=== PATIENT | male | born 2000 | race Caucasian/White ===

== ENCOUNTER 2024-03-27 00:13 | Emergency (ER) | payer SELFPAY ==
[2024-03-27 00:16] VITALS: BP 174/102
--- NOTE | 2024-03-27 00:46 | ED.GENMED ---
History of Present Illness
General
Chief Complaint: Abdominal Pain
Time Seen by Provider: 03/27/24 00:41
History of Present Illness
History of Present Illness:
TIME OF INITIAL ENCOUNTER: 12:48 AM
HPI:
Over the last 3 days or so the patient's been having vomiting and diarrhea. He did not take anything to stop the diarrhea but now feels more constipated. He has diffuse abdominal pain but pain is primarily localized to the infraumbilical region.
Mom was concerned about the possibly of appendicitis as she had an atypical presentation years ago. Has had no fevers.
EXAM:
GENERAL: Well appearing but in mild distress, he is hypertensive
HEENT: Moist oral mucosa
CARDIOVASCULAR: No murmurs, normal heart rate, regular rhythm, No chest wall tenderness
PULMONARY: No respiratory distress, breath sounds are clear and equal
ABDOMEN: Soft with no peritoneal signs, mild diffuse abdominal tenderness
NEUROLOGIC: Excellent strength all extremities, no coordination deficits
PSYCHIATRIC: Appropriate mental status, normal insight and judgement
EXTREMITIES: Nontender, no edema, moves all extremities equally
SKIN: No rash, no lesions
NUMBER AND COMPLEXITY OF PROBLEMS ADDRESSED AT THE ENCOUNTER
� Chronic conditions affecting care: No significant ongoing medical issues
� Acute Exacerbation and/or Progression of Chronic Illness: This is an acute problem
� Differential Diagnosis includes: Viral syndrome, foodborne illness, appendicitis less likely, mesenteric adenitis, epiploic appendagitis
AMOUNT AND/OR COMPLEXITY OF DATA TO BE REVIEWED AND ANALYZED
� I performed an independent evaluation of and my interpretation is:
EKG:
CT: CT imaging personally reviewed and I agree with radiologist interpretation that there is no acute abnormality
X-rays:
Laboratory Studies: White count 10.3, hemoglobin normal, chemistries unremarkable including LFTs and lipase
Other:
� Review of other/old records: I reviewed records, the patient went to the OR for right shoulder surgery 1 year ago
� Clinical information was obtained by an independent historian: I spoke to mother at bedside
� Prescriptions/Medications Considered but not given:
� Further testing considered but not performed:
RISK OF COMPLICATIONS AND/OR MORBIDITY OR MORTALITY OF PATIENT MANAGEMENT
� Social determinants of health affecting care: Lives at home
� Discussion with other providers:
� Escalation of care including admission/observation vs risk of discharge considered: The patient has had poor p.o. intake associated with nausea vomiting and resolved diarrhea. The patient does have diffuse abdominal pain more
so on the infraumbilical region�will obtain for further evaluation.
ANY OTHER UPDATES:
2 AM: On reassessment, the patient says that he feels 'worse'. However his ED workup is unremarkable and he appears fairly comfortable. IV fluids continue to infuse but he did only have 300 mL so far�will give additional fluids. Will also add
Toradol and Zofran. On reassessment he also tells me that he felt fine when he urinated but then after he got back in the stretcher after he urinated the pain worsened.
Past History
Past History
ED Past Medical History: Other (Meningitis)
ED Past Surgical History: None
Social History
Tobacco: Non-smoker
Alcohol: None
Drug: None
Personal: Single
Living: with family
Employment: Employed
Family History
Family History: Other (Noncontributory)
Phy Exam
Physical Exam
Physical Exam:
See HPI
Course
Orders/Labs/Results
Orders:
Orders
03/27/24 00:45
0.9% Sodium Chloride 1000 ml [Nss] 1,000 ml IV BOLUS
Ondansetron Injectable [Zofran] 4 mg IV NOW STA
03/27/24 00:54
CT Abd/pelvis W Iv Cont Urgent
Comment:
Reason For Exam: vomiting diffuse abd pain
03/27/24 00:55
Complete Blood Count/With Diff Urgent
Comprehensive Metabolic Panel Urgent
Lipase Urgent
03/27/24 02:14
Famotidine [Pepcid] 20 mg IV NOW STA
03/27/24 02:15
Ketorolac [Toradol] 15 mg IV NOW STA
Abnormal Lab Results
03/27/24
00:55
Absolute Monos (auto) 0.7 H 10^3/uL
(0.1-0.6)
03/27/24 00:55
03/27/24 00:55
Vital Signs
Initial and Last Documented VS:
Initial Vital Signs
Temp Pulse Resp BP Pulse Ox
36.6 C 80 18 174/102 100
03/27/24 00:16 03/27/24 00:16 03/27/24 00:16 03/27/24 00:16 03/27/24 00:16
Last Documented Vital Signs
Temp Pulse Resp BP Pulse Ox
36.6 C 80 18 174/102 100
03/27/24 00:16 03/27/24 00:16 03/27/24 00:16 03/27/24 00:16 03/27/24 00:16
*Critical Care Note
Total Time (30-74mins, 75-104mins- exclusive of procedures): Not Applicable
ED Attending Note
-
Portions of this chart may have been created with voice recognition software.� Occasional wrong word or��sound alike� substitutions may have occurred due to the inherent limitations of voice recognition software.
Discharge Plan
Departure
Prescriptions:
No Action
meloxicam 15 mg Tablet
15 mg PO DAILY
Referrals:
NONE,* [Family Provider] -
Interventions
Interventions:
*Risk Screen - Suicide Last Done: 03/27/24 00:16
*General Assessment Last Done: 03/27/24 00:57
*Neglect/Abuse Screening Last Done: 03/27/24 00:16
ED- Fall Risk Assessment Last Done: 03/27/24 00:59
*ED COVID-19 Vaccine History Last Done: 03/27/24 00:51
UY-Siunqa-Hjltucuusq Assessment Last Done: 03/27/24 00:51
Discharge Date and Time
Print Language: SLOVAK
[2024-03-27 00:57] VITALS: BMI 40.7
[2024-03-27] MEDS: ZOFRAN 4 MG IV (01:01)
[2024-03-27] MEDS: NSS 1000 IV (01:02)
[2024-03-27 01:03] LABS: % Basophils 0.6 % (0-2); % Eosinophils 5.9 % (0-6); % Immature Granulocytes 0.3 % (0-0.5); % Lymphocytes 29.2 % (20.5-51.1); % Monocytes 6.8 % (1.7-9.3); % Neutrophils 57.2 % (42.2-75.2); Absolute Basophils 0.1 10^3/uL (0-0.2); Absolute Eosinophils 0.6 10^3/uL (0-0.7); Absolute Monocytes 0.7 10^3/uL (0.1-0.6); Absolute Neutrophils 5.9 10^3/uL (1.4-6.5); Hematocrit 46.9 % (39.0-52.0); Hemoglobin 15.9 g/dL (13.0-18.0); Mean Corp Hgb Conc. 33.9 g/dL (33.0-37.0); Mean Corpuscular Hgb 28.8 pg (27.0-31.0); Mean Platelet Volume 10.1 fL (7.4-10.4); Nucleated Red Blood Cells % 0 % (-); Platelet Count 311 10^3/uL (130-400); Red Blood Cell Count 5.52 10^6/uL (4.70-6.10); Red Cell Dist. Width 12.8 % (11.5-14.5); White Blood Cell Count 10.3 10^3/uL (4.8-10.8)
[2024-03-27 01:17] LABS: ALT (SGPT) 37 U/L (0-50); AST (SGOT) 34 U/L (17-59); Albumin 4.8 g/dl (3.5-5.0); Alkaline Phosphatase 116 U/L (38-126); Blood Urea Nitrogen 14 mg/dl (9-20); Calcium 9.8 mg/dl (8.4-10.2); Carbon Dioxide 29 mmol/L (22-30); Chloride 100 mmol/L (98-107); Estimated Creatinine Clearance > 125 ml/min; Glucose 95 mg/dl (70-99); Lipase 48 U/L (23-300); Potassium 4.1 mmol/L (3.5-5.1); Sodium 140 mmol/L (135-145); Total Bilirubin 0.4 mg/dl (0.2-1.3); Total Protein 7.8 g/dl (6.3-8.2); eGFR > 60.00
[2024-03-27 02:00] VITALS: BP 111/77
[2024-03-27] MEDS: PEPCID 20 MG IV (02:26)
[2024-03-27] MEDS: TORADOL 15 MG IV (02:27)
[2024-03-27 02:57] VITALS: BP 111/77
== END 2024-03-27 02:58 | disposition home or self-care (01) ==
LOC: EMR 00:13
PROVIDERS: EMERGENCY PHYSICIAN Emergency Medicine
DX: R10.9 Unspecified abdominal pain (principal)
CPT/HCPCS: 99285; 96374; 96375 ×2; 96361; 74177; 80053; 83690; 85025; Q9967

== ENCOUNTER 2024-03-28 22:15 | Emergency (ER) | payer OTHER, SELFPAY ==
[2024-03-28 22:16] VITALS: BP 154/91
--- NOTE | 2024-03-28 22:31 | ED.GENMED ---
History of Present Illness
<ROBERT Boo - Last Filed: 03/28/24 22:56>
General
Chief Complaint: Abdominal Symptoms
Source: patient
Time Seen by Provider: 03/28/24 22:24
Nursing documentation reviewed up to this point in time: agreed with
History of Present Illness
History of Present Illness:
Pt is a 23 yo M who presents to the emergency department with N/V/D and diffuse abdominal pain x 7 days. The patient reports that he went to the emergency department on 03/27 for the same symptoms. Pt reports that the symptoms have not improved since
being seen and have remained the same. Pt states that he can not keep down food or liquid. Pt states that he has been taking Motrin and that it has not been alleviating the abdominal pain. He states that the abdominal pain is diffusely across his
stomach and is not localized or radiating to an area. He reports the last time he took Motrin was about 5 hours ago. Pt states that he has been experiencing chills with his symptoms. Pt denies fever, blood in his vomit or stool, headache, dizziness,
cough, sick contacts.
Patient's mother states that the patient was given a prescription for Zofran when discharged from the ED on 03/27, mother states that they never picked up the prescription for the patient.
Past History
<Diego Johnson DO - Last Filed: 03/28/24 23:23>
Past History
ED Past Medical History: Other (Meningitis)
ED Past Surgical History: None
Social History
Tobacco: Non-smoker
Alcohol: None
Drug: None
Personal: Single
Living: with family
Employment: Employed
Family History
Family History: Other (Noncontributory)
Review of Systems
<ROBERT Boo - Last Filed: 03/28/24 22:56>
Review of Systems
Allergies reviewed?: Yes
Constitutional: Reports chills
EENT: Reports no symptoms
Respiratory: Reports no symptoms
Cardiac: Reports no symptoms
ABD/GI: Reports abdominal pain, nausea, vomiting and diarrhea
: Reports no symptoms
Skin: Reports no symptoms
Neurological: Reports no symptoms
Phy Exam
<Hue Smith [facility] - Last Filed: 03/28/24 22:56>
General Physical Exam
General Presentation: well appearing and no apparent distress
General age: appears stated age
General Skin: warm
General Habitus: normal
General Mental: alert
General Hydration: appears well hydrated
Cardiovascular Exam
Cardiovascular Exam: regular rate/rhythm
Pulmonary Exam
Pulmonary Exam: lungs clear
Gastrointestinal Exam
Gastrointestinal Exam: soft and non distended
Palpation: left upper quadrant: Minimal tenderness, left lower quadrant: Minimal tenderness, right upper quadrant: Minimal tenderness and right lower quadrant: Minimal tenderness
Course
<Hue Smith [facility] - Last Filed: 03/28/24 22:56>
Orders/Labs/Results
Orders:
Orders
03/28/24 22:51
0.9% Sodium Chloride 1000 ml [Nss] 1,000 ml IV BOLUS
Ondansetron Injectable [Zofran] 4 mg IV NOW STA
03/28/24 22:53
CBC/With Diff [Complete Blood Count/With Diff] Urgent
CMP [Comprehensive Metabolic Panel] Urgent
Lipase Urgent
Vital Signs
Initial and Last Documented VS:
Initial Vital Signs
Temp Pulse Resp BP Pulse Ox
98.5 F 66 18 154/91 100
03/28/24 22:16 03/28/24 22:16 03/28/24 22:16 03/28/24 22:16 03/28/24 22:16
Last Documented Vital Signs
Temp Pulse Resp BP Pulse Ox
98.5 F 66 18 154/91 100
03/28/24 22:16 03/28/24 22:16 03/28/24 22:16 03/28/24 22:16 03/28/24 22:16
<Diego Johnson DO - Last Filed: 03/28/24 23:23>
Orders/Labs/Results
Orders:
Orders
03/28/24 22:51
0.9% Sodium Chloride 1000 ml [Nss] 1,000 ml IV BOLUS
Ondansetron Injectable [Zofran] 4 mg IV NOW STA
03/28/24 22:53
CBC/With Diff [Complete Blood Count/With Diff] Urgent
CMP [Comprehensive Metabolic Panel] Urgent
Lipase Urgent
Vital Signs
Initial and Last Documented VS:
Initial Vital Signs
Temp Pulse Resp BP Pulse Ox
98.5 F 66 18 154/91 100
03/28/24 22:16 03/28/24 22:16 03/28/24 22:16 03/28/24 22:16 03/28/24 22:16
Last Documented Vital Signs
Temp Pulse Resp BP Pulse Ox
98.5 F 66 18 154/91 100
03/28/24 22:16 03/28/24 22:16 03/28/24 22:16 03/28/24 22:16 03/28/24 22:16
<ROBERT Boo - Last Filed: 03/28/24 22:56>
MDM/Problems Addressed
Differential Diagnosis Includes:
Viral gastroenteritis, cholecystitis, appendicitis
<ROBERT Boo - Last Filed: 03/28/24 22:56>
*Critical Care Note
Total Time (30-74mins, 75-104mins- exclusive of procedures): Not Applicable
ED Attending Note
<Diego Johnson DO - Last Filed: 03/28/24 23:23>
ED Attending Note
Patient seen and examined by attending physician: Yes
I performed the substantive portion of visit, reviewed & personally made and approve the management plan that is documented in note by myself or ALICIA.: Yes
ED Attending Note:
Pleasant 23-year-old male presents with nonbloody nausea vomiting and diarrhea for the last week. Patient denies fever but reports diffuse abdominal patient states that he was seen in the emergency department 2 days ago. He was discharged home
feeling a little bit better. He was given a prescription for Zofran which she did not fill. He returns tonight because he states that he cannot keep anything down. Patient reports no other changes in symptoms. Denies chest pain or shortness of
breath. Patient was seen in conjunction with the PA student. I have reviewed and agree with the history and treatment plan presented. On my independent physical exam, patient is awake, alert, and oriented x3 minimal acute distress. Heart is
regular rate and rhythm. Lungs clear to auscultation bilaterally no wheezes rales or rhonchi present. Abdomen is soft, there is diffuse mild tenderness to palpation in all quadrants. Normal bowel sounds in all quadrants. Skin is warm and dry.
Patient moves all
-
Portions of this chart may have been created with voice recognition software.� Occasional wrong word or��sound alike� substitutions may have occurred due to the inherent limitations of voice recognition software.
Discharge Plan
Departure
Prescriptions:
No Action
meloxicam 15 mg Tablet
15 mg PO DAILY
ondansetron HCl 4 mg tablet
4 mg PO Q8H PRN (Reason: nausea and vomiting) Qty: 14 0RF
Referrals:
NONE,* [Family Provider] -
Interventions
Interventions:
*Risk Screen - Suicide Last Done: 03/28/24 22:16
*General Assessment Last Done: 03/28/24 22:16
*Neglect/Abuse Screening Last Done: 03/28/24 22:16
*ED COVID-19 Vaccine History Last Done: 03/28/24 22:16
Discharge Date and Time
Print Language: CYMRAES
[2024-03-28] MEDS: NSS 1000 IV (23:28)
[2024-03-28] MEDS: ZOFRAN 4 MG IV (23:31)
[2024-03-28 23:37] LABS: % Basophils 0.3 % (0-2); % Eosinophils 7.5 % (0-6); % Immature Granulocytes 0.3 % (0-0.5); % Lymphocytes 25.2 % (20.5-51.1); % Monocytes 5.8 % (1.7-9.3); % Neutrophils 60.9 % (42.2-75.2); Absolute Eosinophils 0.7 10^3/uL (0-0.7); Absolute Lymphocytes 2.4 10^3/uL (1.2-3.4); Absolute Monocytes 0.6 10^3/uL (0.1-0.6); Absolute Neutrophils 5.7 10^3/uL (1.4-6.5); Hematocrit 45.7 % (39.0-52.0); Hemoglobin 15.7 g/dL (13.0-18.0); Mean Corp Hgb Conc. 34.4 g/dL (33.0-37.0); Mean Corpuscular Hgb 29.5 pg (27.0-31.0); Mean Corpuscular Volume 85.9 fL (80.0-94.0); Mean Platelet Volume 10.6 fL (7.4-10.4); Nucleated Red Blood Cells % 0 % (-); Platelet Count 287 10^3/uL (130-400); Red Blood Cell Count 5.32 10^6/uL (4.70-6.10); Red Cell Dist. Width 12.7 % (11.5-14.5); White Blood Cell Count 9.4 10^3/uL (4.8-10.8)
[2024-03-28 23:39] VITALS: BMI 40.4
[2024-03-28 23:49] VITALS: BP 156/72
[2024-03-28 23:53] LABS: Blood Urea Nitrogen 15 mg/dl (9-20); Calcium 9.8 mg/dl (8.4-10.2); Carbon Dioxide 28 mmol/L (22-30); Chloride 102 mmol/L (98-107); Estimated Creatinine Clearance > 125 ml/min; Glucose 108 mg/dl (70-99); Lipase 43 U/L (23-300); Sodium 138 mmol/L (135-145); eGFR > 60.00
[2024-03-29] MEDS: ZOFRAN 4 MG IV (00:24)
[2024-03-29] MEDS: REGLAN 10 MG IV (00:25)
[2024-03-29 01:00] VITALS: BP 142/78
== END 2024-03-29 02:15 | disposition home or self-care (01) ==
LOC: EMR 22:15
PROVIDERS: EMERGENCY PHYSICIAN Student in an Organized Health Care Education/Training Program
DX: R11.2 Nausea with vomiting, unspecified (principal); R19.7 Diarrhea, unspecified; R10.84 Generalized abdominal pain
CPT/HCPCS: 96374; 96375; 96376; 96361; 99284; 80048; 83690; 85025